=== PATIENT | female | born 1955 | race Caucasian/White ===

== ENCOUNTER 2019-04-04 17:43 | Emergency (ER) | payer BC ==
[2019-04-04] MEDS ORDERED: Morphine 4 MG/ML VIAL ONE ×2 (18:01→18:38)
[2019-04-04] MEDS ORDERED: Ondansetron PF 4 MG/2 ML Vial ONE (18:02)
[2019-04-04 18:13] LABS: #Basophils 0.1 thou/uL (0.0-0.2); #Eosinphils 0.2 thou/uL (0.0-0.7); #Lymphocytes 2.4 thou/uL (1.20-3.40); #Monocytes 0.7 thou/uL (0.11-0.59); #Neutrophils 3.3 thou/uL (1.40-6.50); %Basophils 1.1 % (0.0-1.0); %Lymphocytes 35.8 % (21.0-51.0); %Monocytes 10.2 % (0.0-10.0); %Neutrophils 49.9 % (42.0-75.0); Hemoglobin 13.5 g/dL (12.0-16.0); Mean Corpuscular HGB CONC 32.5 g/dL (32.0-36.0); Mean Corpuscular Hemoglobin 29.3 pg (27.0-31.0); Mean Corpuscular Volume 90.4 fL (78.0-98.0); Platelet Count 199 thou/uL (130-400); RBC Distribution Width 11.9 % (11.5-14.5); Red Blood Cell (RBC) Count 4.61 mill/uL (4.20-5.40); White Blood Cell (WBC) Count 6.7 thou/uL (4.8-10.8)
[2019-04-04 18:30] LABS: ALT (SGPT) 49 U/L (8-55); AST (SGOT) 31 U/L (5-34); Albumin 4.2 g/dL (3.4-4.8); Alkaline Phosphatase 98 U/L (40-150); Anion Gap 14 mmol/L (10-20); BUN (Urea Nitrogen) 16 mg/dL (9.8-20.1); Bilirubin, Total 0.3 mg/dL (0.2-1.2); Calc. Creatinine Clearance 0 mL/min (70-130); Calcium 9.7 mg/dL (7.8-10.44); Carbon Dioxide 25 mmol/L (23-31); Chloride 103 mmol/L (98-107); Estimated GFR-MDRD 68; Globulin 2.6 g/dL (2.4-3.5); Glucose 110 mg/dL (80-115); Potassium 3.8 mmol/L (3.5-5.1); Protein, Total 6.8 g/dL (6.0-8.3); Sodium 138 mmol/L (136-145)
--- NOTE | 2019-04-04 18:44 | RAD ---
PORTABLE AP CHEST X-RAY 04/04/19 HISTORY: Chest pain. Hypertension. COMPARISON: 09/20/16. FINDINGS: The cardiac silhouette is magnified by projection but does appear mildly enlarged. The pulmonary vasc ulature is within normal limits. There is linear density seen in the region of the lingula which may represent minimal atelectasis versus scarring. Lungs are otherwise clear. Thoracic aorta is ectatic. There is prominence of the hilar structures bilaterally and greater on the right which may be related to the technique of the exam. The radiopaque catheters overlying the chest on the prior study are n o longer seen. IMPRESSION: 1. Mild cardiomegaly without overt CHF. 2. No acute cardiopulmonary process. 3. Mild prominence of the right hilar structures most likely attributable to superimposition of structures. POS: CHARLIE
== END 2019-04-04 19:00 | disposition short-term general hospital (02) ==
LOC: MADERS 17:43
DX: R07.9 Chest pain, unspecified (principal); E11.9 Type 2 diabetes mellitus without complications; E05.90 Thyrotoxicosis, unspecified without thyrotoxic crisis or storm; I10 Essential (primary) hypertension; Z86.73 Personal history of transient ischemic attack (TIA), and cerebral infarction without residual deficits
CPT/HCPCS: 36415; 71045; 80053; 83880; 84484; 85025; 93005; 94760; 96374; 96375; 96376; J2270; J2405